=== PATIENT | female | born 1975 | race Caucasian/White ===

== ENCOUNTER 2018-08-06 12:16 | Emergency (ER) | payer OTHER ==
[~2018-08-06] VITALS: Ht 172.7 cm; Wt 67.1 kg
== END 2018-08-06 14:55 | disposition home or self-care (01) ==
LOC: ER 12:16
DX: S51.021A Laceration with foreign body of right elbow, initial encounter (principal); W18.09XA Striking against other object with subsequent fall, initial encounter; Y93.89 Activity, other specified; Y92.89 Other specified places as the place of occurrence of the external cause; Y99.8 Other external cause status

== ENCOUNTER 2018-08-19 09:18 | Emergency (ER) | payer OTHER ==
[~2018-08-19] VITALS: Ht 172.7 cm; Wt 65.8 kg
[2018-08-19] MEDS ORDERED: SYNTHROID50 MCG (09:44)
== END 2018-08-19 11:05 | disposition home or self-care (01) ==
LOC: ER 09:18
DX: Z48.02 Encounter for removal of sutures (principal)